=== PATIENT | male | born 1980 | race American Indian/Alaskan Native ===

== ENCOUNTER 2017-08-23 08:51 | Inpatient (IN) | payer BC ==
[2017-08-23] MEDS ORDERED: ASPIRIN PO ONE (09:33)
[2017-08-23 09:54] LABS: Basophils # (Auto) 0.1 K/mm3 (0.0-0.1); Basophils % (Auto) 0.9 % (0.0-1.8); Eosinophils # (Auto) 0.2 K/mm3 (0.0-0.4); Eosinophils % (Auto) 1.8 % (0.0-4.3); Hematocrit 43.2 % (35.5-45.6); Hemoglobin 14.4 gm/dl (11.8-15.2); Lymphocytes # (Auto) 2.4 K/mm3 (1.2-5.4); Lymphocytes % (Auto) 22.9 % (13.4-35.0); Mean Corpuscular HGB Conc 33 % (32-34); Mean Corpuscular Hemoglobin 32 pg (28-32); Mean Corpuscular Volume 95 fl (84-94); Monocytes # (Auto) 0.8 K/mm3 (0.0-0.8); Monocytes % (Auto) 7.6 % (0.0-7.3); Platelet Count 276 K/mm3 (140-440); Red Blood Count 4.57 M/mm3 (3.65-5.03); Red Cell Distribution Width 13.5 % (13.2-15.2)
[2017-08-23 10:12] LABS: BUN/Creatinine Ratio 15; Blood Urea Nitrogen 12 mg/dL (9-20); Calcium 9.2 mg/dL (8.4-10.2); Hemolysis Index 13
--- NOTE | 2017-08-23 13:09 | Emergency Department Report ---
ED Chest Pain HPI - General Chief Complaint: Chest Pain Stated Complaint: CHEST PAIN Time Seen by Provider: 08/23/17 12:58 Source: patient Mode of arrival: Ambulatory Limitations: No Limitations - History of Present Illness Initial Comments: Patient is 37 years old male with history of diabetes, not on any medication, history of smoking. Patient presented with 3 week history of left-sided chest pain, patient stated that his pain feels like somebody sitting on his chest, then radiated to his left upper extremity associated with numbness. Pain increases when he start walking associated with some shortness of breath also. Patient rated his pain at this moment is 7 out of 10. Patient stated that he took 3 baby aspirin before he came. MD Complaint: chest pain -: week(s) Onset: during rest Pain Location: substernal, left chest Pain Radiation: LUE Severity scale (0 -10): 7 Quality: tightness, pressure Consistency: constant Improves With: other (aspirin) Worsens With: nothing - Related Data Allergies Allergy/AdvReac Type Severity Reaction Status Date / Time No Known Allergies Allergy Unverified 08/23/17 09:29 Heart Score - HEART Score History: Moderately suspicious EKG: Non-specific Age: < 45 Risk factors: 1-2 risk factors Troponin: < normal limit HEART Score: 3 - Critical Actions Critical Actions: 0-3 pts:0.9-1.7%risk of adverse cardiac event.Candidate for discharge ED Review of Systems ROS: Stated complaint: CHEST PAIN Other details as noted in HPI Comment: All other systems reviewed and negative Constitutional: denies: chills, fever Respiratory: denies: cough, orthopnea, shortness of breath, SOB with exertion Cardiovascular: chest pain. denies: palpitations, dyspnea on exertion, orthopnea, edema, syncope, paroxysmal nocturnal dyspnea Gastrointestinal: denies: abdominal pain, nausea, vomiting, diarrhea, constipation, hematemesis, melena, hematochezia Musculoskeletal: denies: back pain, joint swelling Neurological: denies: headache, weakness, numbness ED Past Medical Hx - Past Medical History Previous Medical History?: Yes Hx Diabetes: Yes Additional medical history: abuse of energy pills - Surgical History Past Surgical History?: Yes Additional Surgical History: Right ankle surgery - Social History Smoking Status: Current Every Day Smoker Substance Use Type: Alcohol, Non Opiate Pain ED Physical Exam - General Limitations: No Limitations General appearance: alert, in no apparent distress - Head Head exam: Present: atraumatic, normocephalic, normal inspection - Eye Eye exam: Present: normal appearance, PERRL - ENT ENT exam: Present: normal exam, normal orophraynx, mucous membranes moist - Neck Neck exam: Present: normal inspection, full ROM. Absent: meningismus, lymphadenopathy - Respiratory Respiratory exam: Present: normal lung sounds bilaterally. Absent: respiratory distress, wheezes, rales, rhonchi, stridor - Cardiovascular Cardiovascular Exam: Present: regular rate, normal rhythm, normal heart sounds - GI/Abdominal GI/Abdominal exam: Present: soft, normal bowel sounds. Absent: distended, tenderness, guarding, rebound, rigid, organomegaly, mass, bruit, pulsatile mass , hernia - Extremities Exam Extremities exam: Present: normal inspection, full ROM, normal capillary refill. Absent: pedal edema - Back Exam Back exam: Present: normal inspection, full ROM. Absent: tenderness, CVA tenderness (R), CVA tenderness (L), muscle spasm - Neurological Exam Neurological exam: Present: alert, oriented X3, CN II-XII intact, normal gait - Skin Skin exam: Present: warm, intact, normal color ED Course Vital Signs 08/23/17 08/23/17 09:29 13:29 Temperature 98.3 F Pulse Rate 98 H 88 Respiratory 16 Rate Blood Pressure 168/88 141/75 O2 Sat by Pulse 97 Oximetry ED Medical Decision Making - Lab Data Result diagrams: 08/23/17 09:41 08/23/17 09:41 - EKG Data -: EKG Interpreted by Ma EKG shows normal: sinus rhythm Rate: normal - EKG Data Interpretation: no acute changes - Radiology Data Radiology results: report reviewed Referring Physician: HARIKA MISTRY Patient Name: FRAN NEGRETE Date of : 1980 Sex: Male Report Date: 2017-08-23 Report Status: Finalized Findings [facility] [address] [place] [address] XRay Report Signed Patient: FRAN NEGRETE MR#: [id number] : 1980 Acct:[id number] Age/Sex: 37 / M ADM Date: 08/23/17 Loc: ED Attending Dr: Ordering Physician: HARIKA MISTRY Date of Service: 08/23/17 Procedure(s): XR chest 1V ap Accession Number(s): [id number] cc: HARIKA MISTRY Fluoro Time In Minutes: AP CHEST: HISTORY: chest pain AP view of the chest demonstrates a normal mediastinal and cardiac contour with clear lungs and normal bony and soft tissue structures. IMPRESSION: Unremarkable AP chest. Transcribed By: TTR Dictated By: REED NICHOLS JR, MD Electronically Authenticated By: REED NICHOLS JR, MD Signed Date/Time: 08/23/171325 DD/ 25 TD/TT: 08/23/171325 - Medical Decision Making Discussed with Dr. Worrell, I presented the patient to him, had repeat admitted the patient to the service. Critical care attestation.: If time is entered above; I have spent that time in minutes in the direct care of this critically ill patient, excluding procedure time. ED Disposition Clinical Impression: Chest pain, Unstable angina Disposition: OP ADMIT IP TO THIS HOSP Is pt being admited?: Yes Condition: Stable Instructions: Chest Pain (ED), Angina (ED)
[2017-08-23] MEDS ORDERED: NITROSTAT SL ONE (13:11)
[2017-08-23] MEDS ORDERED: BABY ASPIRIN PO ONE (13:20)
--- NOTE | 2017-08-23 13:33 | XRay Report ---
AP CHEST: HISTORY: chest pain AP view of the chest demonstrates a normal mediastinal and cardiac contour with clear lungs and normal bony and soft tissue structures. IMPRESSION: Unremarkable AP chest.
[2017-08-23 18:31] VITALS: BP 121/67
[2017-08-23] MEDS ORDERED: ZOFRAN IV PRN (22:40)
[2017-08-23] MEDS ORDERED: DULCOLAX PR PRN (22:40)
[2017-08-23] MEDS ORDERED: PERCOCET 5/325 PO PRN (22:40)
[2017-08-23] MEDS ORDERED: TYLENOL PO PRN (22:40)
[2017-08-23] MEDS ORDERED: MORPHINE IV PRN (22:40)
[2017-08-23] MEDS ORDERED: MILK OF MAGNESIA PO PRN (22:40)
--- NOTE | 2017-08-23 22:40 | History and Physical Report ---
History of Present Illness Date of examination: 08/23/17 Date of admission: 08/23/17 13:57 Chief complaint: CC L side CP 1 day History of present illness: History of Present Illness Patient is 37 years old male with history of diabetes, not on any medication, history of smoking presented with 3 week history of left-sided chest pain, patient stated that his pain feels like somebody sitting on his chest, then radiated to his left upper extremity associated with numbness. Pain increases when he start walking associated with some shortness of breath also. Patient rated his pain at this moment is 7 out of 10. Patient stated that he took 3 baby aspirin before he came.No exacerbating or relieving factors. Review of Systems ROS: Stated complaint: CHEST PAIN Other details as noted in HPI Comment: All other systems reviewed and negative Constitutional: denies: chills, fever Respiratory: denies: cough, orthopnea, shortness of breath, SOB with exertion Cardiovascular: chest pain. denies: palpitations, dyspnea on exertion, orthopnea, edema, syncope, paroxysmal nocturnal dyspnea Gastrointestinal: denies: abdominal pain, nausea, vomiting, diarrhea, constipation, hematemesis, melena, hematochezia Musculoskeletal: denies: back pain, joint swelling Neurological: denies: headache, weakness, numbness Past Medical Hx - Past Medical History Previous Medical History?: Yes Hx Diabetes: Yes Additional medical history: abuse of energy pills - Surgical History Past Surgical History?: Yes Additional Surgical History: Right ankle surgery - Social History Smoking Status: Current Every Day Smoker Substance Use Type: Alcohol, Non Opiate Pain Medications and Allergies Allergies Allergy/AdvReac Type Severity Reaction Status Date / Time No Known Allergies Allergy Unverified 08/23/17 09:29 Home Medications Medication Instructions Recorded Confirmed Last Taken Type No Known Home Medications [No 08/23/17 08/23/17 Unknown History Reported Home Medications] Exam - Constitutional Vitals: Temp Pulse Resp BP Pulse Ox 98.3 F 76 19 121/67 99 08/23/17 09:29 08/23/17 17:00 08/23/17 17:00 08/23/17 18:00 08/23/17 17:00 General appearance: Present: no acute distress, well-nourished - EENT Eyes: Present: PERRL ENT: hearing intact, clear oral mucosa - Neck Neck: Present: supple, normal ROM - Respiratory Respiratory effort: normal Respiratory: bilateral: CTA - Cardiovascular Heart Sounds: Present: S1 & S2. Absent: rub, click - Extremities Extremities: pulses symmetrical, No edema Peripheral Pulses: within normal limits - Abdominal General gastrointestinal: Present: soft, non-tender, non-distended, normal bowel sounds Male genitourinary: Present: normal - Integumentary Integumentary: Present: clear, warm, dry - Musculoskeletal Musculoskeletal: gait normal, strength equal bilaterally - Psychiatric Psychiatric: appropriate mood/affect, intact judgment & insight - Neurologic Neurologic: CNII-XII intact, moves all extremities Results - Labs CBC & Chem 7: 08/23/17 09:41 02 09:41 Labs: Laboratory Last Values WBC 10.3 K/mm3 (4.5-11.0) 08/23/17 09:41 RBC 4.57 M/mm3 (3.65-5.03) 08/23/17 09:41 Hgb 14.4 gm/dl (11.8-15.2) 08/23/17 09:41 Hct 43.2 % (35.5-45.6) 08/23/17 09:41 MCV 95 fl (84-94) H 08/23/17 09:41 MCH 32 pg (28-32) 08/23/17 09:41 MCHC 33 % (32-34) 08/23/17 09:41 RDW 13.5 % (13.2-15.2) 08/23/17 09:41 Plt Count 276 K/mm3 (140-440) 08/23/17 09:41 Lymph % (Auto) 22.9 % (13.4-35.0) 08/23/17 09:41 Gilchrist % (Auto) 7.6 % (0.0-7.3) H 08/23/17 09:41 Eos % (Auto) 1.8 % (0.0-4.3) 08/23/17 09:41 Baso % (Auto) 0.9 % (0.0-1.8) 08/23/17 09:41 Lymph # 2.4 K/mm3 (1.2-5.4) 08/23/17 09:41 Gilchrist # 0.8 K/mm3 (0.0-0.8) 08/23/17 09:41 Eos # 0.2 K/mm3 (0.0-0.4) 08/23/17 09:41 Baso # 0.1 K/mm3 (0.0-0.1) 08/23/17 09:41 Seg Neutrophils % 66.8 % (40.0-70.0) 08/23/17 09:41 Seg Neutrophils # 6.9 K/mm3 (1.8-7.7) 08/23/17 09:41 Sodium 136 mmol/L (137-145) L 08/23/17 09:41 Potassium 4.5 mmol/L (3.6-5.0) 08/23/17 09:41 Chloride 97.9 mmol/L (98-107) L 08/23/17 09:41 Carbon Dioxide 23 mmol/L (22-30) 08/23/17 09:41 Anion Gap 20 mmol/L 08/23/17 09:41 BUN 12 mg/dL (9-20) 08/23/17 09:41 Creatinine 0.8 mg/dL (0.8-1.5) 08/23/17 09:41 Estimated GFR > 60 ml/min 08/23/17 09:41 BUN/Creatinine Ratio 15 % 08/23/17 09:41 Glucose 253 mg/dL (75-100) H 08/23/17 09:41 Calcium 9.2 mg/dL (8.4-10.2) 08/23/17 09:41 Troponin T < 0.010 ng/mL (0.00-0.029) 08/23/17 12:33 NT-Pro-B Natriuret Pep 9.88 pg/mL (0-450) 08/23/17 13:03 - Imaging and Cardiology EKG: report reviewed Assessment and Plan Advance Directives: Yes (Full code) VTE prophylaxis?: Chemical Plan of care discussed with patient/family: Yes - Patient Problems (1) Chest pain Status: Acute Plan to address problem: Chest pain w/u Lexiscan in AM (2) T2DM (type 2 diabetes mellitus) Status: Chronic Qualifiers: Diabetes mellitus complication status: without complication Plan to address problem: Add Metformin and Glimepride (3) DVT prophylaxis Status: Acute Plan to address problem: on Lovenox
--- NOTE | 2017-08-24 06:29 | Discharge Summary ---
Providers - Providers Date of Admission: 08/23/17 13:57 Date of discharge: 08/23/17 Attending physician: DAGOBERTO CALL Primary care physician: SLITTER SCORER CUT OFF OPERATOR Hospitalization Condition: Stable Hospital course: Assessment and Plan Advance Directives: Yes (Full code) VTE prophylaxis?: Chemical Plan of care discussed with patient/family: Yes - Patient Problems (1) Chest pain Status: Acute Plan to address problem: Chest pain w/u Lexiscan in AM (2) T2DM (type 2 diabetes mellitus) Status: Chronic Qualifiers: Diabetes mellitus complication status: without complication Plan to address problem: Add Metformin and Glimepride (3) DVT prophylaxis Status: Acute Plan to address problem: on Lovenox Left AMA before Lexiscan and oral hypoglycemics were introduced Disposition: DC-07 LEFT AGAINST MED ADVICE - Discharge Diagnoses (1) Chest pain Status: Acute (2) T2DM (type 2 diabetes mellitus) Status: Chronic Qualifiers: Diabetes mellitus complication status: without complication (3) DVT prophylaxis Status: Acute Core Measure Documentation - Palliative Care Palliative Care/ Comfort Measures: Not Applicable - Core Measures Any of the following diagnoses?: none Exam - Constitutional Vitals: Temp Pulse Resp BP Pulse Ox 98.3 F 76 19 121/67 99 08/23/17 09:29 08/23/17 17:00 08/23/17 17:00 08/23/17 18:00 08/23/17 17:00 General appearance: Present: no acute distress, well-nourished - EENT Eyes: Present: PERRL ENT: hearing intact, clear oral mucosa - Neck Neck: Present: supple, normal ROM - Respiratory Respiratory effort: normal Respiratory: bilateral: CTA - Cardiovascular Heart Sounds: Present: S1 & S2. Absent: rub, click - Extremities Extremities: pulses symmetrical, No edema Peripheral Pulses: within normal limits - Abdominal General gastrointestinal: Present: soft, non-tender, non-distended, normal bowel sounds Male genitourinary: Present: normal - Integumentary Integumentary: Present: clear, warm, dry - Musculoskeletal Musculoskeletal: gait normal, strength equal bilaterally - Psychiatric Psychiatric: appropriate mood/affect, intact judgment & insight - Neurologic Neurologic: CNII-XII intact, moves all extremities Plan Activity: no restrictions Diet: diabetic Follow up with: PRIMARY CARE, [Primary Care Provider] - 7 Days
[2017-08-24] MEDS ORDERED: LOVENOX SUB-Q SCH (10:00)
[2017-08-24] MEDS ORDERED: PEPCID PO SCH (10:00)
== END 2017-08-23 19:00 | disposition left against medical advice (07) | DRG 311 ==
LOC: ED 08:51 → 4A 13:57
PROVIDERS: ADMIT Internal Medicine; ATTEND Internal Medicine
DX: I20.0 Unstable angina (principal); E11.9 Type 2 diabetes mellitus without complications; F17.200 Nicotine dependence, unspecified, uncomplicated; Z72.89 Other problems related to lifestyle
CPT/HCPCS: 36415; 71045; 80048; 83880; 84484; 85025; 93005; 93010

== ENCOUNTER 2018-01-25 22:31 | Emergency (ER) | payer BC ==
[2018-01-26] MEDS ORDERED: ASPIRIN PO ONE (00:29)
[2018-01-26 01:05] LABS: BUN/Creatinine Ratio 5; Blood Urea Nitrogen 6 mg/dL (9-20); Calcium 9.6 mg/dL (8.4-10.2); Hemolysis Index 7
[2018-01-26 01:45] LABS: Basophils # (Auto) 0.1 K/mm3 (0.0-0.1); Basophils % (Auto) 1.1 % (0.0-1.8); Eosinophils # (Auto) 0.2 K/mm3 (0.0-0.4); Eosinophils % (Auto) 1.7 % (0.0-4.3); Hematocrit 45.1 % (35.5-45.6); Hemoglobin 15.5 gm/dl (11.8-15.2); Lymphocytes % (Auto) 43.6 % (13.4-35.0); Mean Corpuscular HGB Conc 35 % (32-34); Mean Corpuscular Hemoglobin 32 pg (28-32); Mean Corpuscular Volume 93 fl (84-94); Monocytes # (Auto) 0.6 K/mm3 (0.0-0.8); Monocytes % (Auto) 6.7 % (0.0-7.3); Platelet Count 313 K/mm3 (140-440); Red Blood Count 4.83 M/mm3 (3.65-5.03); Red Cell Distribution Width 13.1 % (13.2-15.2)
[2018-01-26 02:02] LABS: Bilirubin,Urine NEG (Negative); Blood,Urine NEG (Negative); Color,Urine Straw (Yellow); Mucus,Urine FEW /HPF; Protein,Urine <15 mg/dL mg/dL (Negative); RBC,Urine < 1.0 /HPF (0.0-6.0); Urobilinogen,Urine < 2.0 mg/dL (<2.0); WBC,Urine < 1.0 /HPF (0.0-6.0)
--- NOTE | 2018-01-26 06:30 | Emergency Department Report ---
ED General Adult HPI - General Chief complaint: Hyperglycemia Stated complaint: CHEST PAIN Time Seen by Provider: 01/26/18 06:29 Source: patient Mode of arrival: Ambulatory Limitations: No Limitations - History of Present Illness Initial comments: Patient complains of generalized weakness, lack of energy for 2 weeks. -: Gradual, week(s) (2) Severity scale (0 -10): 6 Consistency: constant Improves with: none Worsens with: cold therapy Associated Symptoms: weakness Treatments Prior to Arrival: none - Related Data Previous Rx's Medication Instructions Recorded Last Taken Type Aspirin [Aspir-Low] 81 mg PO DAILY #30 tablet. 01/26/18 Unknown Rx Metformin HCl 500 mg PO BID #60 tablet 01/26/18 Unknown Rx Allergies Allergy/AdvReac Type Severity Reaction Status Date / Time No Known Allergies Allergy Verified 01/26/18 00:24 ED Review of Systems ROS: Stated complaint: CHEST PAIN Other details as noted in HPI Comment: All other systems reviewed and negative Constitutional: denies: chills, fever Eyes: denies: eye pain, eye discharge ENT: denies: ear pain, dental pain Respiratory: denies: cough, orthopnea, shortness of breath Cardiovascular: chest pain. denies: palpitations Endocrine: increased hunger, increased thirst, increased urine Gastrointestinal: denies: abdominal pain, nausea, vomiting, diarrhea Genitourinary: denies: urgency, dysuria, frequency Musculoskeletal: denies: back pain, joint swelling Skin: denies: rash Neurological: weakness. denies: headache Psychiatric: denies: anxiety, depression Hematological/Lymphatic: denies: easy bleeding, easy bruising ED Past Medical Hx - Past Medical History Previous Medical History?: Yes Hx Diabetes: (denies diabetes but has had high glucose several times) Additional medical history: abuse of energy pills - Surgical History Past Surgical History?: Yes Additional Surgical History: Right ankle surgery - Social History Smoking Status: Current Every Day Smoker Substance Use Type: None - Medications Home Medications: Home Medications Medication Instructions Recorded Confirmed Last Taken Type Aspirin [Aspir-Low] 81 mg PO DAILY #30 tablet. 01/26/18 Unknown Rx Metformin HCl 500 mg PO BID #60 tablet 01/26/18 Unknown Rx ED Physical Exam - General Limitations: No Limitations General appearance: alert, in no apparent distress - Head Head exam: Present: atraumatic, normocephalic, normal inspection - Eye Eye exam: Present: normal appearance, PERRL, EOMI Pupils: Present: normal accommodation - ENT ENT exam: Present: normal exam, normal orophraynx, mucous membranes moist - Neck Neck exam: Present: normal inspection, full ROM. Absent: tenderness - Respiratory Respiratory exam: Present: normal lung sounds bilaterally. Absent: respiratory distress, wheezes, rales, rhonchi - Cardiovascular Cardiovascular Exam: Present: regular rate, normal rhythm, normal heart sounds - GI/Abdominal GI/Abdominal exam: Present: soft, normal bowel sounds. Absent: distended, tenderness, guarding, rebound - Extremities Exam Extremities exam: Present: normal inspection, full ROM, normal capillary refill - Back Exam Back exam: Present: normal inspection, full ROM. Absent: tenderness - Neurological Exam Neurological exam: Present: alert, altered, oriented X3, CN II-XII intact - Psychiatric Psychiatric exam: Present: normal affect, normal mood - Skin Skin exam: Present: warm, dry, intact, normal color. Absent: rash ED Course Vital Signs 01/26/18 01/26/18 01/26/18 00:17 03:15 06:10 Temperature 98.4 F 99.0 F Pulse Rate 113 H 113 H Respiratory 18 20 Rate Blood Pressure 127/78 133/86 O2 Sat by Pulse 96 97 97 Oximetry 01/26/18 01/26/18 01/26/18 06:15 06:30 06:45 Temperature Pulse Rate 103 H 97 H 95 H Respiratory 24 22 21 Rate Blood Pressure 127/79 121/77 O2 Sat by Pulse 92 92 91 Oximetry 01/26/18 01/26/18 01/26/18 07:00 07:15 07:30 Temperature Pulse Rate 103 H 92 H 103 H Respiratory 24 19 16 Rate Blood Pressure 126/81 130/81 143/93 O2 Sat by Pulse 94 95 94 Oximetry 01/26/18 01/26/18 01/26/18 07:46 08:00 08:16 Temperature Pulse Rate 94 H 90 86 Respiratory 21 21 19 Rate Blood Pressure 130/81 130/81 130/81 O2 Sat by Pulse 97 95 95 Oximetry 01/26/18 01/26/18 01/26/18 08:30 08:46 09:00 Temperature Pulse Rate 91 H 85 92 H Respiratory 19 23 19 Rate Blood Pressure 130/81 120/62 120/62 O2 Sat by Pulse 96 96 98 Oximetry 01/26/18 01/26/18 01/26/18 09:16 09:30 09:46 Temperature Pulse Rate 85 87 79 Respiratory 19 20 15 Rate Blood Pressure 120/62 120/62 120/62 O2 Sat by Pulse 96 96 98 Oximetry 01/26/18 01/26/18 01/26/18 10:00 10:16 10:30 Temperature Pulse Rate 75 73 83 Respiratory 18 16 18 Rate Blood Pressure 109/50 109/50 109/50 O2 Sat by Pulse 95 95 96 Oximetry 01/26/18 01/26/18 10:46 11:00 Temperature Pulse Rate 78 82 Respiratory 20 20 Rate Blood Pressure 109/50 123/64 O2 Sat by Pulse 96 96 Oximetry - Reevaluation(s) Reevaluation #1: 01/26/18 11:36 On re-evaluation, patient is felling much better and wants to go home. ED Medical Decision Making - Lab Data Result diagrams: 01/26/18 00:35 01/26/18 00:35 - EKG Data -: EKG Interpreted by Me EKG shows normal: sinus rhythm Rate: tachycardia (113) - EKG Data When compared to previous EKG there are: previous EKG unavailable Interpretation: nonspecific ST-T wave catie - Radiology Data Radiology results: report reviewed - Medical Decision Making New Onset Diabetes. Critical care attestation.: If time is entered above; I have spent that time in minutes in the direct care of this critically ill patient, excluding procedure time. ED Disposition Clinical Impression: New onset type 2 diabetes mellitus T2DM (type 2 diabetes mellitus) Qualifiers: Diabetes mellitus project engineering manager insulin use: without project engineering manager use Diabetes mellitus complication status: without complication Qualified Code(s): E11.9 - Type 2 diabetes mellitus without complications Chest pain Qualifiers: Chest pain type: unspecified Qualified Code(s): R07.9 - Chest pain, unspecified Disposition: DC-01 TO HOME OR SELFCARE Is pt being admited?: No Does the pt Need Aspirin: No Condition: Stable Instructions: Chest Pain (ED), Diabetes Mellitus Type 2 in Adults (ED) Additional Instructions: Please follow up with Dr Tyrone Esqueda as an outpatient for further management of your Diabetes. Return to the ED if your condition worsens. Prescriptions: Aspirin [Aspir-Low] 81 mg PO DAILY #30 tablet. Metformin HCl 500 mg PO BID #60 tablet Referrals: PRIMARY CAREMD [Primary Care Provider] - 3-5 Days CUCO ESQUEDA MD [Staff Physician] - 3-5 Days Time of Disposition: 11:38
[2018-01-26] MEDS ORDERED: NACL 0.9% 1000 ML 1,000 ML IV ONE ×2 (07:05)
[2018-01-26] MEDS ORDERED: GLUCOPHAGE PO ONE (07:07)
[2018-01-26 07:53] LABS: Alanine Aminotransferase 35 units/L (7-56); Albumin 4.3 g/dL (3.9-5)
[2018-01-26 07:59] LABS: Bilirubin,Direct < 0.2 mg/dL (0-0.2)
[2018-01-26 11:15] VITALS: BP 123/64
== END 2018-01-26 12:27 | disposition home or self-care (01) ==
LOC: ED 22:31
DX: E11.65 Type 2 diabetes mellitus with hyperglycemia (principal); R07.9 Chest pain, unspecified; F17.200 Nicotine dependence, unspecified, uncomplicated; Z79.82 Long term (current) use of aspirin
CPT/HCPCS: 36415; 80048; 80074; 81001; 82805; 82962; 84484; 85025; 93005; 93010; 96360; 96361; 99284; J7030